=== PATIENT | male | born 1965 | race Caucasian/White ===

== ENCOUNTER 2024-06-23 06:54 | Emergency (ER) | payer BC ==
[~2024-06-23] VITALS: Ht 177.8 cm; Wt 113.4 kg
[2024-06-23] MEDS ORDERED: MEDROL DOSEPAK4 MG PO (08:24)
== END 2024-06-23 08:44 | disposition home or self-care (01) ==
LOC: ED 06:54
DX: B34.9 Viral infection, unspecified (principal); Z20.822 Contact with and (suspected) exposure to COVID-19; I10 Essential (primary) hypertension; F17.210 Nicotine dependence, cigarettes, uncomplicated; Z90.49 Acquired absence of other specified parts of digestive tract